=== PATIENT | male | born 1990 | race Caucasian/White ===

== ENCOUNTER 2017-01-28 15:39 | Emergency (ER) | payer SELFPAY ==
[2017-01-28 15:49] VITALS: TEMP 98.1
[2017-01-28 20:04] VITALS: PULSE 73; RESP 16
[2017-01-28] MEDS ORDERED: NS 1,000 ML IV ONE (20:21)
[2017-01-28] MEDS ORDERED: HYDROmorphONE/DILAUDID 1 MG/ML INJ IVP ONE (20:21)
[2017-01-28] MEDS ORDERED: ONDANSETRON 4 MG/2 ML VIAL IVP ONE (20:21)
--- NOTE | 2017-01-28 20:24 | EDPHY ---
H & P <Lyndon Adame Reyna - Last Filed: 01/28/17 22:29> Stated Complaint: R GROIN/INGUINAL PAIN LAST FEW DAYS POST WORKING(MASSAGE) Source: Patient Exam Limitations: No limitations - Personal History Current Tetanus/Diphtheria Vaccine: Unsure - Medical/Surgical History Hx Asthma: No Hx Chronic Respiratory Disease: No Hx Diabetes: No Hx Cardiac Disease: No Hx Renal Disease: No Hx Cirrhosis: No Hx Alcoholism: No Hx HIV/AIDS: No Hx Splenectomy or Spleen Trauma: No Other PMH: DENIES - Family History Significant Family History: No pertinent family hx - Social History Smoking Status: Never smoked Alcohol Use: Sober Drug Use: None <Matt Faustin - Last Filed: 01/29/17 15:04> Time Seen by Provider: 01/28/17 20:11 HPI/ROS: CHIEF COMPLAINT: Right inguinal pain HISTORY OF PRESENT ILLNESS: The patient is a 26-year-old man who comes to the emergency department complaining of right inguinal pain. He has had the symptoms off and on for the last week usually after work. He works as a massage therapist. Today it began earlier around 2:00 p.m.. He denies nausea vomiting or diarrhea. No fevers. He does not have any abdominal pain or tenderness. He does not have any testicular pain. He denies risk for STD. No urethral discharge. No dysuria. No trauma. He states that the pain radiates down his the front leg. REVIEW OF SYSTEMS: Constitutional: denies: chills, fever, recent illness, recent injury EENTM: denies: blurred vision, double vision, nose congestion Respiratory: denies: cough, shortness of breath Cardiac: denies: chest pain, irregular heart rate, lightheadedness, palpitations Gastrointestinal/Abdominal: See HPI denies: abdominal pain, diarrhea, nausea, vomiting, blood streaked stools Genitourinary: denies: dysuria, frequency, hematuria, pain Musculoskeletal: denies: joint pain, muscle pain Skin: denies: lesions, rash, jaundice, bruising Neurological: denies: headache, numbness, paresthesia, tingling, dizziness, weakness Hematologic/Lymphatic: denies: blood clots, easy bleeding, easy bruising Immunologic/allergic: denies: HIV/AIDS, transplant EXAM: GENERAL: Well-appearing, well-nourished and in no acute distress. HEAD: Atraumatic, normocephalic. EYES: Pupils equal round and reactive to light, extraocular movements intact, sclera anicteric, conjunctiva are normal. ENT: TMs normal, nares patent, oropharynx clear without exudates. Moist mucous membranes. NECK: Normal range of motion, supple without lymphadenopathy or JVD. LUNGS: Breath sounds clear to auscultation bilaterally and equal. No wheezes rales or rhonchi. HEART: Regular rate and rhythm without murmurs, rubs or gallops. ABDOMEN: Soft, nontender, normoactive bowel sounds. No guarding, no rebound. No masses appreciated. : The patient has a small inguinal hernia palpable in the right side. No testicular pain. Normal cremasteric. Normal lie. Mild inguinal tenderness. No discharge. BACK: No CVA tenderness, no spinal tenderness, step-offs or deformities EXTREMITIES: Normal range of motion, no pitting or edema. No clubbing or cyanosis. NEUROLOGICAL: Cranial nerves II through XII grossly intact. Normal speech, normal gait. 5/5 strength, normal movement in all extremities, normal sensation PSYCH: Normal mood, normal affect. SKIN: Warm, dry, normal turgor, no visible rashes or lesions. (Matt Faustin) Constitutional: Initial Vital Signs Temperature (C) 36.7 C 01/28/17 15:46 Heart Rate 69 01/28/17 15:46 Respiratory Rate 18 01/28/17 15:46 Blood Pressure 105/78 01/28/17 15:46 O2 Sat (%) 97 01/28/17 15:46 O2 Delivery Mode Room Air Allergies/Adverse Reactions: No Known Allergies Allergy (Unverified 01/28/17 15:45) Home Medications: Medication Instructions Recorded NK [No Known Home Meds] 01/28/17 Medical Decision Making <Lyndon Adame - Last Filed: 01/28/17 22:29> <Matt Faustin - Last Filed: 01/29/17 15:04> ED Course/Re-evaluation: 20:18 Dr. Patton, surgeon, consulted. The patient is cleared for discharge in good condition. He will follow up with Dr. Patton for further management. The patient is comfortable with this plan. (Lyndon Adame) 9:40 p.m. I discussed the case with Dr. Patton who will come consult. Care transferred to Dr. Lyndon Adame shift change. (Matt Faustin) Differential Diagnosis: Partial list of the Differential diagnosis considered include but were not limited to; hernia, femoral cutaneous nerve neuropathy and although unlikely based on the history and physical exam, I also considered kidney stone, urinary tract infection, sexually transmitted disease, torsion. (Matt Faustin) - Data Points Laboratory Results: Laboratory Results 01/28/17 20:40 01/28/17 20:40 Medications Given: Discontinued Medications Hydromorphone HCl (Dilaudid) 1 mg IVP EDNOW ONE Stop: 01/28/17 20:22 Last Admin: 01/28/17 21:12 Dose: 0.5 mg Sodium Chloride (Ns) 1,000 mls @ 0 mls/hr IV EDNOW ONE; Wide Open PRN Reason: Protocol Stop: 01/28/17 20:22 Last Admin: 01/28/17 20:38 Dose: 1,000 mls Ondansetron HCl (Zofran) 4 mg IVP EDNOW ONE Stop: 01/28/17 20:22 Last Admin: 01/28/17 21:08 Dose: 4 mg Departure <Lyndon Adame - Last Filed: 01/28/17 22:29> <Matt Faustin - Last Filed: 01/29/17 15:04> - Departure Disposition: Home, Routine, Self-Care Clinical Impression: Inguinal mass Condition: Good Instructions: Groin Pain (ED) Additional Instructions: Follow up with Dr. Patton as discussed. His contact information is attached. Return to the emergency department for worsening pain, fever, or other worsening of condition. Referrals: NONE *PRIMARY CARE P,. [Primary Care Provider] - As per Instructions John Patton MD [Medical Doctor] - As per Instructions Stand Alone Forms: Work Excuse Report Scribed for: Lyndon Adame Report Scribed by: Natalee Serrato Date of Report: 01/28/17 Time of Report: 22:29 <Lyndon Adame - Last Filed: 01/28/17 22:29>
[2017-01-28] MEDS ORDERED: IOPAMIDOL (ISOVUE-300) 100 ML BTL ONE (20:49)
[2017-01-28 20:51] LABS: COLOR YELLOW; LEUKOCYTE ESTERASE,URINE NEGATIVE (NEGATIVE); NITRITE,URINE NEGATIVE (NEGATIVE)
[2017-01-28 20:54] LABS: % IMMATURE GRANULYOCYTES 0.2 % (0.0-1.1); ABSOLUTE IMMATURE GRANULOCYTES 0.02 10^3/uL (0.00-0.10); ADD DIFF? NO; ADD MORPH? NO; ADD SCAN? NO; ATYPICAL LYMPHOCYTE FLAG 0 (0-99); FRAGMENT RBC FLAG 0 (0-99); HEMATOCRIT 44.7 % (40.0-51.0); HEMOGLOBIN 15.4 g/dL (13.7-17.5); LEFT SHIFT FLG 0 (0-99); LIPEMIA HEMOLYSIS FLAG 90 (0-99); MEAN CELL HEMOGLOBIN 29.6 pg (27.9-34.1); MEAN CELL HEMOGLOBIN CONCENTR. 34.5 g/dL (32.4-36.7); MEAN CELL VOLUME 85.8 fL (81.5-99.8); MEAN PLATELET VOLUME 10.9 fL (8.7-11.7); PLATELET CLUMPS FLAG 0 (0-99); PLATELET COUNT 203 10^3/uL (150-400); RED BLOOD CELL COUNT 5.21 10^6/uL (4.40-6.38); RED CELL DISTRIBUTION WIDTH 12.5 % (11.5-15.2)
[2017-01-28 20:55] LABS: BACTERIA 1+ /hpf (NONE SEEN)
[2017-01-28 21:15] LABS: ALANINE AMINOTRANSFERASE 35 IU/L (21-72); ALBUMIN 4.4 g/dL (3.5-5.0); ALKALINE PHOSPHATASE 56 IU/L (38-126); ANION GAP 12 mEq/L (8-16); ASPARTATE AMINOTRANSFERASE 24 IU/L (17-59); BILIRUBIN,TOTAL 0.9 mg/dL (0.1-1.4); BILIRUBIN-CONJUGATED 0.3 mg/dL (0.0-0.5); BILIRUBIN-UNCONJUGATED 0.6 mg/dL (0.0-1.1); CALCIUM 9.7 mg/dL (8.5-10.4); CARBON DIOXIDE 22 mEq/l (22-31); CHLORIDE 105 mEq/L (97-110); CREATININE 0.8 mg/dL (0.7-1.3); GLOMERULAR FILTRATION RATE > 60; GLUCOSE 92 mg/dL (70-100); POTASSIUM 3.8 mEq/L (3.5-5.2); SODIUM 139 mEq/L (134-144); TOTAL PROTEIN 7.1 g/dL (6.3-8.2)
[2017-01-28 22:37] VITALS: BP 119/67; O2SAT 97
--- NOTE | 2017-01-29 04:16 | GCON ---
[f rep st] CONSULTATION REFERRING PHYSICIAN: Lyndon Adame MD ADDITIONAL REFERRING PHYSICIAN: Matt Faustin from the emergency room. CHIEF COMPLAINT: The patient presents with right groin pain. HISTORY OF PRESENT ILLNESS: Patient presented to the hospital after acute onset of pain. He drove f [employer] to [email or web address], and after sitting in the car for several hours, he has excruciating pain in the right groin, which was not accompanied by fevers or chills, nausea, vomiting, diarrhea. Pain was listed as 7/10 to 8/10, which was not relieved by any measures. The patient does report intermit tent right groin pain with the same drive over the last several months, but this was the worst to lacie e. The patient has not had any other past medical history. He does have a history of thickened epid idymis at the time of engagement several years ago. PAST MEDICAL HISTORY: None. PAST SURGICAL HISTORY: None. FAMILY HISTORY: Significant for interstitial cystitis and GI issues with his mother. Kidney stones in his father. MEDICATIONS: He takes no medication. ALLERGIES: He has seasonal allergies but no known drug allergies. REVIEW OF SYSTEMS: Significant for his right groin pain, otherwise, normal. All others were found t o be unremarkable. SOCIAL HISTORY: Significant for marijuana use. Occasional alcohol. Denies tobacco use. PHYSICAL EXAMINATION: VITAL SIGNS: The patient is afebrile with a temperature of 36.7, heart rate o f 84, blood pressure of 119/67, saturating 97% on room air with a respiratory rate of 16. HEENT: Hi s sclerae are anicteric. Oropharynx is moist. NECK: No JVD, thyromegaly, supraclavicular adenopath y. His trachea is midline. LUNGS: Clear bilaterally. HEART: Has regular heart tones. S1, S2. A BDOMEN: Soft, nontender, nondistended. No scars. No ventral or umbilical hernia. : Right groin has a reducible mass, which is mildly tender to palpation. There is no erythema. There is no sign of acute incarceration. His left groin appears normal. Testicles are normal size, Michael stage 5, w ith normal size epididymis. EXTREMITIES: Without edema. 2+/2+ femoral, dorsalis pedis, and radial pulses. SKIN: He has no rashes. BACK: He has no CVA tenderness on either side. NEUROLOGIC: He h as a nonfocal exam with cranial nerves 2-12 grossly intact. IMAGING DATA: I have reviewed his CT scan of his abdomen and pelvis. There appears to be a fluid co llection or possible lipoma of the cord. Hydrocele or lipoma is likely. CT scan results are reviewe d with Dr. Ayala. Possible undescended testicle, which was initially thought is likely an incorrect diagnosis and this is just unknown fluids or fat collection within the cord. IMPRESSION: Right groin pain, most likely lipoma or hydrocele. PLAN: Outpatient followup with [facility]. Possibilities of laparoscopic inguinal hernia repai r, either unilateral or bilateral, have been discussed with the patient. The risks include, but are not limited to bleeding, infection, injury to the cord structures, testicle atrophy. The patient und erstands that there is no emergency at this point. Signs of strangulation were outlined and reviewed with the patient. Verbal understanding was confirmed. The patient was asked to follow up at his n recognizance within the office. /[id number]/MODL
== END 2017-01-28 22:37 | disposition home or self-care (01) ==
DX: R19.09 Other intra-abdominal and pelvic swelling, mass and lump (principal); E86.9 Volume depletion, unspecified
CPT/HCPCS: 82947-QW; 96374; J1170; J2405; Q9967